=== PATIENT | male | born 1985 | race Caucasian/White ===

== ENCOUNTER 2024-10-08 20:28 | Emergency (ER) | payer OTHER ==
--- OUTSIDE RECORDS SUMMARY | 2024-10-08 20:31 | XMS REPORT | Continuity of Care Document ---
Author Name Unknown Address [address] [facility]. [address] [place] [address] [facility] thconnect Address [address] [facility]. 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 Name Role Phone Gonzales Garcia Attending Clinician [facility]av[facility] Physician, No Primary or Family Admitting Clinic jimi Unavailable Payers Payer Name Policy Type Policy Number Effective Date Expirati on Date Source Encounters Start Date/Time End Date/Time Encounter Type Admission Type Attending Clinicians Care Facility Care Department Encounter ID Source 2022-11-27 13:19:00 2022-11-27 13:19:00 Outpatient Gonzales Landon [facility] [id number] [address] [facility] Results Test Description Test Time Test Comments Results Resul t Comments Source - CT LOWER EXTRM W/O C RT 2022-11-28 00:00:00 [facility] 1985 [facility] 1985 Age[facility]S: 37 / M [address] [place] [address] Unit #: [id number] Loc: [place] [address] Phys: Gonzales Garcia III, MD Acct: [id number] Dis Date: Status: DEP CLI PHONE #: [phone] Exam Date: 11/27/2022 1413 FAX #: [phone] Reason: CLOSED FRACTURE OF SECOND METATARSAL BONE, RIGH EXAMS: CPT CODE: [id number] CT LOWER EXTRM W/[place] [address] PROCEDURE INFORMATION: Exam: CT Right Lower Extremity Without Contrast, Foot Exam date and time: 11/27/2022 1:48 PM Age: 37 years old Clinical indication: Condition or disease; Other: Closed fracture of second metatarsal bone, right. TECHNIQUE: Imaging protocol: CT of the Right lower extremity without contrast was performed. Exam focused on the foot. Radiation optimization: All CT scans at this facility use at least one of these dose optimization techniques: automated exposure control; mA and/or kV adjustment per patient size (includes targeted exams where dose is matched to clinical indication); or iterative reconstruction. COMPARISON: No relevant prior studies available. FINDINGS: Bones/joints: Acute to subacute appearing nondisplaced fracture at the base of the 2nd metatarsal with intra-articular extension to the tarsometatarsal articulation. There are additional smaller nondisplaced fractures at the bases of the 1st, 3rd, and 4th metatarsals as well as the dorsal aspect of the 1st cuneiform and cuboid. No widening of the Lisfranc interval. Soft tissues: Subcutaneous edema about the foot. Normal muscle bulk. Visualized tendons are grossly intact. No soft tissue mass or fluid collection. IMPRESSION: 1. Acute to subacute appearing nondisplaced fracture at the base of the 2nd metatarsal with intra-articular extension. 2. Additional smaller nondisplaced fractures of the 1st, 3rd, and 4th metatarsal bases as well as the dorsal aspect of the 1st cuneiform and cuboid. at 0857 Reported and signed by: Aramis Gibbons M.D. CC: Gonzales Garcia III, MD Technologist:Guillaume Degroot, RT(R)(CT) CTDI: DLP: Trnscb Date/Time: 11/28/2022 (0857) [email or web address] Orig Print D/T: S: 11/28/2022 (0857) PAGE 1 Signed Report
[2024-10-08] MEDS ORDERED: ALBUTEROL 2.5 MG/3 ML NEB SOL ONE (20:53)
[2024-10-08] MEDS ORDERED: IPRATROPIUM BROM 0.5MG/2.5ML ONE (20:53)
--- NOTE | 2024-10-08 21:27 | RAD REPORT ---
EXAMINATION: ONE VIEW CHEST XR CLINICAL INDICATION: DYSPNEA TECHNIQUE: Frontal chest projection is submitted. Examination is limited by patient positioning and t echnique. COMPARISON: No prior exam. FINDINGS: The lungs are well inflated and clear. The heart is normal in size. No displaced fractures identified . IMPRESSION: No acute intrathoracic abnormalities.
--- NOTE | 2024-10-08 21:29 | ER ---
Nurse's Notes [facility] Name: Danielito Aguilar Age: 39 yrs Sex: Male : 1985 Arrival Date: 10/08/2024 Time: 20:28 Bed 20 Private MD: Diagnosis: Viral illness, bronchitis Presentation: 10/08 20:49 Chief complaint: Patient states: had covid about a month ago, feels like he never tm6 recovered. Feels like fluid is building up in chest, having bad coughing fits. Went to [facility], they prescribed steroids and tessalon pearls. Today started to have labored breathing. Coronavirus screen: Client denies travel out of the [place] in the last 14 days. Ebola Screen: Patient negative for fever greater than or equal to 101.5 degrees Fahrenheit, and additional compatible Ebola Virus Disease symptoms Patient denies exposure to infectious person. Patient denies travel to an Ebola-affected area in the 21 days before illness onset. No symptoms or risks identified at this time. Initial Sepsis Screen: Does the patient meet any 2 criteria? No. Patient's initial sepsis screen is negative. Does the patient have a suspected source of infection? No. Patient's initial sepsis screen is negative. Risk Assessment: Do you want to hurt yourself or someone else? Patient reports no desire to harm self or others. Onset of symptoms was September 07, 2024. 20:49 Method Of Arrival: Ambulatory tm6 20:49 Acuity: ROSA 4 tm6 Triage Assessment: 20:51 General: Appears in no apparent distress. Behavior is calm, cooperative. Pain: Denies tm6 pain. EENT: No signs and/or symptoms were reported regarding the EENT system. Neuro: Level of Consciousness is awake, alert, obeys commands, Oriented to person, place, time, situation. Cardiovascular: Patient's skin is warm and dry. Respiratory: Reports cough that is labored breathing Onset: The symptoms/episode began/occurred worsened a few days ago, the patient has mild shortness of breath. GI: No signs and/or symptoms were reported involving the gastrointestinal system. Abdomen is flat, non-distended. : No signs and/or symptoms were reported regarding the genitourinary system. Derm: No signs and/or symptoms reported regarding the dermatologic system. Musculoskeletal: No signs and/or symptoms reported regarding the musculoskeletal system. Historical: - Allergies: 20:51 PENICILLINS; tm6 - PMHx: 20:51 None; tm6 - PSHx: 20:51 None; tm6 - Immunization history:: Client reports receiving the 2nd dose of the Covid vaccine. - Infectious Disease History:: Denies. - Social history:: Smoking status: Patient denies any tobacco usage or history of. Patient/guardian denies using alcohol. Screenin:01 [facility] ED Fall Risk Assessment (Adult) History of falling in the last 3 months, kj2 including since admission No falls in past 3 months (0 pts) Confusion or Disorientation No (0 pts) Intoxicated or Sedated No (0 pts) Impaired Gait No (0 pts) Mobility Assist Device Used No (0 pt) Altered Elimination No (0 pt) Score/Fall Risk Level 0 - 2 = Low Risk Maintained a safe environment, Hourly rounding (assess needs \T\ fall precautionary measures) done. Abuse screen: Denies threats or abuse. Denies injuries from another. Nutritional screening: No deficits noted. Tuberculosis screening: No symptoms or risk factors identified. Assessment: 20:58 General: Appears in no apparent distress. Behavior is calm, cooperative. Pain: Denies kj2 pain. Neuro: Level of Consciousness is awake, alert, obeys commands, Oriented to person, place, time, situation. Cardiovascular: Patient's skin is warm and dry. Respiratory: Airway is patent Respiratory effort is even, unlabored. GI: No signs and/or symptoms were reported involving the gastrointestinal system. : No signs and/or symptoms were reported regarding the genitourinary system. 21:00 Respiratory: Breath sounds with rhonchi in upper lobes. kj2 21:43 Reassessment: Patient appears in no apparent distress at this time. Patient and/or kj2 family updated on plan of care and expected duration. Pain level reassessed. Patient is alert, oriented x 3, equal unlabored respirations, skin warm/dry/pink. 21:45 Cardiovascular: Rhythm is regular. kj2 Vital Signs: 20:49 BP 125 / 68; Pulse 86; Resp 20; Temp 98(O); Pulse Ox 97% on R/A; MAP 85 mmHg; Weight tm6 104.33 kg; Height 5 ft. 10 in. ; Pain 0/10; 20:59 BP 120 / 80; Pulse 74; Resp 18; Pulse Ox 99% on R/A; Weight 104.33 kg; Height 5 ft. 10 kj2 in. ; 21:43 BP 121 / 78; Pulse 72; Resp 18; Temp 98; Pulse Ox 100% on R/A; kj2 20:59 Body Mass Index 33.00 (104.33 kg, 177.8 cm) kj2 20:49 Pain Scale: Adult tm6 ED Course: 20:32 Patient arrived in ED. mr 20:34 Katelyn Cunha MD is Attending Physician. sp3 20:50 Myesha Daley, RN is Primary Nurse. kj2 20:51 Triage completed. tm6 20:51 Arm band placed on right wrist. tm6 20:52 Allergy band placed. tm6 21:01 Provided Education on: CALL LIGHT. FALL PRECAUTIONS. kj2 21:02 No provider procedures requiring assistance completed. kj2 21:25 CXR XRAY In Process Unspecified. EDMS 21:45 Patient did not have IV access during this emergency room visit. kj2 Administered Medications: 20:58 Drug: DuoNeb Nebulize (3:1) (2.5 mg - 0.5 mg) 3 ml Nebulizer once Route: Nebulizer; kj2 21:55 Follow up: Response: No adverse reaction kj2 Medication: 21:02 VIS not applicable for this client. kj2 Outcome: 21:28 Discharge ordered by . sp3 21:44 Discharged to home ambulatory, kj2 21:44 Condition: stable 21:44 Discharge instructions given to patient, Instructed on discharge instructions, follow up and referral plans. medication usage, Demonstrated understanding of instructions, follow-up care, medications, Prescriptions given X 1, 21:56 Patient left the ED. kj2 Signatures: Dispatcher [employer] EDMA Maryana Landaverde, Reg Reg mr Katelyn Cunha MD MD sp3 Emanuel Muniz RN RN tm6 Myesha Daley RN RN kj2 Corrections: (The following items were deleted from the chart) 20:51 20:51 PMHx: None; tm6 tm6
--- NOTE | 2024-10-08 21:29 | EDPHYS ---
Physician Documentation [facility] Name: Danielito Aguilar Age: 39 yrs Sex: Male : 1985 Arrival Date: 10/08/2024 Time: 20:28 Bed 20 Private MD: ED Physician Katelyn Cunha HPI: 10/08 20:52 This 39 yrs old Male presents to ER via Ambulatory with complaints of Shortness Of sp3 Breath, Cough. 20:52 39-year-old male with no past medical history who had COVID approximately 1 month ago sp3 now presents to the ED with chief complaint cough and shortness of breath. Patient saw his physician at the [facility] today who examined him and stated there were no wheezing or other abnormal lung sounds and prescribe him Tessalon pearls as well as prednisone. 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 He denies any chest pain, fever, production on the cough, Gerard pain, vomiting, diarrhea, rash, known sick contacts, travel history, or any other signs or symptoms on ROS at this time.. Historical: - Allergies: 20:51 PENICILLINS; tm6 - PMHx: 20:51 None; tm6 - PSHx: 20:51 None; tm6 - Immunization history:: Client reports receiving the 2nd dose of the Covid vaccine. - Infectious Disease History:: Denies. - Social history:: Smoking status: Patient denies any tobacco usage or history of. Patient/guardian denies using alcohol. ROS: 20:53 Constitutional: Negative for fever, chills, and weight loss, Eyes: Negative for injury, sp3 pain, redness, and discharge, ENT: Negative for injury, pain, and discharge, Neck: Negative for injury, pain, and swelling, Cardiovascular: Negative for chest pain, palpitations, and edema, Abdomen/GI: Negative for abdominal pain, nausea, vomiting, diarrhea, and constipation, Back: Negative for injury and pain, MS/Extremity: Negative for injury and deformity, Skin: Negative for injury, rash, and discoloration, Neuro: Negative for headache, weakness, numbness, tingling, and seizure, Psych: Negative for depression, anxiety, suicide ideation, homicidal ideation, and hallucinations, Allergy/Immunology: Negative for hives, rash, and allergies, Endocrine: Negative for neck swelling, polydipsia, polyuria, polyphagia, and marked weight changes, Hematologic/Lymphatic: Negative for swollen nodes, abnormal bleeding, and unusual bruising, 20:53 All other systems are negative, Exam: 20:53 Constitutional: This is a well developed, well nourished patient who is awake, alert, sp3 and in no acute distress. Head/Face: Normocephalic, atraumatic. Eyes: Pupils equal round and reactive to light, extra-ocular motions intact. Lids and lashes normal. Conjunctiva and sclera are non-icteric and not injected. Cornea within normal limits. Periorbital areas with no swelling, redness, or edema. Neck: Trachea midline, no thyromegaly or masses palpated, and no cervical lymphadenopathy. Supple, full range of motion without nuchal rigidity, or vertebral point tenderness. No Meningismus. Chest/axilla: Normal chest wall appearance and motion. Nontender with no deformity. No lesions are appreciated. Cardiovascular: Regular rate and rhythm with a normal S1 and S2. No gallops, murmurs, or rubs. Normal PMI, no JVD. No pulse deficits. Abdomen/GI: Soft, non-tender, with normal bowel sounds. No distension or tympany. No guarding or rebound. No evidence of tenderness throughout. Back: No spinal tenderness. No costovertebral tenderness. Full range of motion. Skin: Warm, dry with normal turgor. Normal color with no rashes, no lesions, and no evidence of cellulitis. MS/ Extremity: Pulses equal, no cyanosis. Neurovascular intact. Full, normal range of motion. Neuro: Awake and alert, GCS 15, oriented to person, place, time, and situation. Cranial nerves II-XII grossly intact. Motor strength 5/5 in all extremities. Sensory grossly intact. Cerebellar exam normal. Normal gait. Psych: Awake, alert, with orientation to person, place and time. Behavior, mood, and affect are within normal limits. 20:53 Respiratory: Mild end expiratory wheeze noted., Vital Signs: 20:49 BP 125 / 68; Pulse 86; Resp 20; Temp 98(O); Pulse Ox 97% on R/A; MAP 85 mmHg; Weight tm6 104.33 kg; Height 5 ft. 10 in. ; Pain 0/10; 20:59 BP 120 / 80; Pulse 74; Resp 18; Pulse Ox 99% on R/A; Weight 104.33 kg; Height 5 ft. 10 kj2 in. ; 21:43 BP 121 / 78; Pulse 72; Resp 18; Temp 98; Pulse Ox 100% on R/A; kj2 20:59 Body Mass Index 33.00 (104.33 kg, 177.8 cm) kj2 20:49 Pain Scale: Adult tm6 MDM: 20:45 Medical Screening Exam initiated sp3 20:54 Data reviewed: vital signs, nurses notes, radiologic studies. ED course: 39-year-old sp3 male with chief complaint cough and shortness of breath with probable viral infection. Differential diagnosis includes viral infection versus colitis versus pneumonia to a much lower degree. End expiratory wheeze noted. Patient is already on Tessalon and prednisone and I will administer nebulizer treatment here in the ED. If chest x-ray is clean, we will discharge home on additional med of albuterol MDI. Follow-up with [facility] as needed. Vital signs normal pulse oxygenation 97% on room air.. 21:27 ED course: Chest x-ray negative. We will add albuterol MDI and discharge patient safely sp3 home.. 10/08 20:50 Order name: CXR XRAY; Complete Time: 21:27 sp3 Administered Medications: 20:58 Drug: DuoNeb Nebulize (3:1) (2.5 mg - 0.5 mg) 3 ml Nebulizer once Route: Nebulizer; kj2 21:55 Follow up: Response: No adverse reaction kj2 Disposition Summary: 10/08/24 21:28 Discharge Ordered Notes: Location: Home sp3 Condition: Stable sp3 Diagnosis - Viral illness, bronchitis sp3 Followup: sp3 - With: Private Physician - When: Upon discharge from the Emergency Department - Reason: Continuance of care Discharge Instructions: - Discharge Summary Sheet sp3 Forms: - Medication Reconciliation Form sp3 - Antibiotic Education sp3 - Prescription Opioid Use sp3 - Patient Portal Instructions sp3 - Leadership Thank You Letter sp3 Prescriptions: - albuterol sulfate 90 mcg/actuation Inhalation HFA Aerosol Inhaler - inhale 2 puff INHALATION route every 3 to 4 hours as needed for bronchospasm; sp3 administer via ventilator; 1 Each; Refills: 0, Product Selection Permitted Signatures: Dispatcher [employer] Katelyn Paul MD MD sp3 Emanuel Muniz RN RN tm6 Myesha Daley RN RN kj2 Corrections: (The following items were deleted from the chart) 20:51 20:51 PMHx: None; tm6 tm6
[2024-10-08 23:44] VITALS: TEMP 98
[2024-10-08 23:46] VITALS: BP 121/78; O2SAT 100
== END 2024-10-08 21:56 | disposition home or self-care (01) ==
LOC: ER 20:28
DX: J40 Bronchitis, not specified as acute or chronic (principal); B34.9 Viral infection, unspecified
CPT/HCPCS: 71045; 99284; J7613; J7644